=== PATIENT | female | born 1990 | race Caucasian/White ===

== ENCOUNTER 2017-12-18 09:50 | Observation (INO) | payer BC, MEDICAID ==
[~2017-12-18] VITALS: Ht 30.5 cm; Wt 0.5 kg
[~2017-12-18 09:50] MED LIST: PREN-96 PO
[2017-12-18 11:28] LABS: Basophils # (auto) 0 uL; Basophils % (auto) 0.1 % (0.0-2.0); Eosinophils # (auto) 0 uL; Eosinophils % (auto) 0.5 % (0.0-7.0); Hematocrit 30.6 % (36.0-46.0); Hemoglobin 10.4 g/dL (12.2-16.2); Lymphocytes # (auto) 1.6 uL; Mean Corpuscular Hemoglobin 28.2 pg (28.0-32.0); Mean Corpuscular Hgb Conc. 33.8 g/dL (32.0-36.0); Mean Corpuscular Volume 83.3 fL (80.0-100.0); Monocytes # (auto) 0.6 uL; Monocytes % (auto) 6.3 % (0.0-12.0); Neutrophils # (auto) 7.2 uL; Neutrophils % (auto) 76.1 % (37.0-80.0); Nucleated Red Blood Cells % 0.1 %; Platelet Count (auto) 172 10^3/uL (140-450); Red Blood Cells 3.68 10^6/uL (4.0-5.20); White Blood Cell 9.4 10^3/uL (4.4-10.8)
[2017-12-18 11:45] LABS: INR 0.92 (0.9-1.15); Partial Thromboplastin Time 26.5 sec (22.64-33.71)
[2017-12-18 11:47] LABS: Urine Bacteria MOD /hpf (None Seen); Urine Blood Negative /uL (Negative); Urine Specific Gravity 1.015 (1.001-1.035); Urine WBC 12 /hpf (0 - 5)
[2017-12-18 11:47] LABS: Albumin 2.7 g/dL (3.4-5.0); BUN/Creatinine Ratio 7.5; Bilirubin, Total 0.3 mg/dL (0.2-1.0); Calcium 8.2 mg/dL (8.5-10.1); Total Protein 6.2 g/dL (6.4-8.2); Uric Acid 5.3 mg/dL (2.6-6.0)
[2017-12-18 12:03] LABS: Potassium 2.6 mmol/L (3.5-5.1)
[2017-12-18] MEDS ORDERED: POTASSIUM CHL 20 Meq TABLET PO ONE (12:45)
[2017-12-18] MEDS: POTASSIUM CHL 20MEQ/100ML 100 ML IV SCH ×2 (13:35→15:16)
[2017-12-18] MEDS ORDERED: LABETALOL HCL 200 MG TAB PO STA ×3 (15:34→17:10)
[2017-12-18] MEDS ORDERED: LABETALOL HCL 200 MG TAB ONE (15:40)
[2017-12-18] MEDS ORDERED: LABE200T18 PO (19:15)
[2017-12-19 05:07] LABS: RPR Non Reactive (Non Reactive)
== END 2017-12-18 19:52 | disposition home or self-care (01) | DRG 781 ==
LOC: LDRP 09:50
PROVIDERS: ADMIT Specialist; ATTEND Specialist
DX: O13.3 Gestational [pregnancy-induced] hypertension without significant proteinuria, third trimester (principal); O99.283 Endocrine, nutritional and metabolic diseases complicating pregnancy, third trimester; E87.6 Hypokalemia; Z3A.36 36 weeks gestation of pregnancy
CPT/HCPCS: 36415; 59025; 76818; 80053; 81001; 81002; 84550; 85025; 85610; 85730; 86592; 96365; 96366; G0378; J3480

== ENCOUNTER 2017-12-20 09:15 | Observation (INO) | payer BC, MEDICAID ==
[~2017-12-20 09:15] MED LIST changes: +LABE200T18 PO
[2017-12-20 09:58] LABS: Protein, Urine 20.8 mg/dL (0.0-11.9)
[2017-12-20 09:59] LABS: 24 Hr. Total Protein, Urine 343.2 mg/24 Hr (<149.1)
[2017-12-20] MEDS ORDERED: POTASSIUM CHL 20 Meq TABLET PO ONE ×2 (10:50)
== END 2017-12-20 11:15 | disposition home or self-care (01) | DRG 566 ==
LOC: LDRP 09:15
PROVIDERS: ADMIT Obstetrics & Gynecology; ATTEND Obstetrics & Gynecology
DX: O13.3 Gestational [pregnancy-induced] hypertension without significant proteinuria, third trimester (principal); Z87.442 Personal history of urinary calculi; Z3A.36 36 weeks gestation of pregnancy
CPT/HCPCS: 36415; 59025; 81002; 84132; 84156; G0378

== ENCOUNTER 2017-12-22 10:43 | Observation (INO) | payer MEDICAID ==
[2017-12-22] MEDS ORDERED: FERR-7 PO (11:04)
[2017-12-22 11:37] LABS: Urine Bacteria MANY /hpf (None Seen); Urine Blood Negative /uL (Negative); Urine Mucus FEW (None Seen); Urine Specific Gravity 1.015 (1.001-1.035); Urine WBC 20 /hpf (0 - 5)
[2017-12-22 12:02] LABS: Basophils # (auto) 0 uL; Basophils % (auto) 0.2 % (0.0-2.0); Eosinophils # (auto) 0.1 uL; Eosinophils % (auto) 0.5 % (0.0-7.0); Hematocrit 28.9 % (36.0-46.0); Hemoglobin 9.7 g/dL (12.2-16.2); Lymphocytes # (auto) 1.6 uL; Lymphocytes % (auto) 17.4 % (10.0-50.0); Mean Corpuscular Hemoglobin 28.3 pg (28.0-32.0); Mean Corpuscular Hgb Conc. 33.7 g/dL (32.0-36.0); Monocytes # (auto) 0.6 uL; Monocytes % (auto) 6.3 % (0.0-12.0); Neutrophils % (auto) 75.6 % (37.0-80.0); Platelet Count (auto) 167 10^3/uL (140-450); Red Blood Cells 3.43 10^6/uL (4.0-5.20); Red Cell Distribution Width 16.1 % (11.8-14.3); White Blood Cell 9.2 10^3/uL (4.4-10.8)
[2017-12-22 12:09] LABS: INR 0.93 (0.9-1.15); Partial Thromboplastin Time 24.3 sec (22.64-33.71); Prothrombin Time 10.1 sec (9.37-12.3)
[2017-12-22 12:23] LABS: Albumin 2.6 g/dL (3.4-5.0); BUN/Creatinine Ratio 8.8; Bilirubin, Total 0.3 mg/dL (0.2-1.0); Potassium 3.2 mmol/L (3.5-5.1); Total Protein 6.1 g/dL (6.4-8.2); Uric Acid 5.4 mg/dL (2.6-6.0)
[2017-12-22] MEDS ORDERED: POTASSIUM CHL 20 Meq TABLET PO ONE (13:00)
== END 2017-12-22 13:20 | disposition home or self-care (01) | DRG 566 ==
LOC: LDRP 10:43
PROVIDERS: ADMIT Obstetrics & Gynecology; ATTEND Obstetrics & Gynecology
DX: O13.3 Gestational [pregnancy-induced] hypertension without significant proteinuria, third trimester (principal); Z87.442 Personal history of urinary calculi; Z3A.36 36 weeks gestation of pregnancy
CPT/HCPCS: 36415; 59025; 76818; 80053; 81001; 81002; 84550; 85025; 85610; 85730; G0378

== ENCOUNTER 2017-12-23 08:10 | Observation (INO) | payer MEDICAID ==
[~2017-12-23 08:10] MED LIST changes: +FERR-7 PO
== END 2017-12-23 10:45 | disposition home or self-care (01) | DRG 566 ==
LOC: LDRP 08:10
PROVIDERS: ADMIT Obstetrics & Gynecology; ATTEND Obstetrics & Gynecology
DX: O13.3 Gestational [pregnancy-induced] hypertension without significant proteinuria, third trimester (principal); Z3A.36 36 weeks gestation of pregnancy
CPT/HCPCS: 59025; 76818; 81002; G0378

== ENCOUNTER 2017-12-25 10:55 | Observation (INO) | payer MEDICAID ==
[~2017-12-25] VITALS: Ht 167.6 cm; Wt 90.7 kg
== END 2017-12-25 11:35 | disposition home or self-care (01) | DRG 566 ==
LOC: LDRP 10:55
PROVIDERS: ADMIT Specialist; ATTEND Specialist
DX: O13.3 Gestational [pregnancy-induced] hypertension without significant proteinuria, third trimester (principal); Z3A.37 37 weeks gestation of pregnancy
CPT/HCPCS: 59025; 81002; G0378

== ENCOUNTER 2017-12-27 15:15 | Inpatient (IN) | payer MEDICAID ==
[~2017-12-27] VITALS: Ht 1 cm; Wt 0.5 kg
[2017-12-27] MEDS ORDERED: hydrALAZINE HCL 20 MG/ML VL ONE (16:30)
[2017-12-27] MEDS ORDERED: hydrALAZINE HCL 20 MG/ML VL IV ONE (16:30)
[2017-12-27 17:36] LABS: Basophils # (auto) 0 uL; Basophils % (auto) 0.1 % (0.0-2.0); Eosinophils # (auto) 0.1 uL; Eosinophils % (auto) 0.5 % (0.0-7.0); Hemoglobin 10.4 g/dL (12.2-16.2); Lymphocytes # (auto) 1.4 uL; Lymphocytes % (auto) 14.7 % (10.0-50.0); Mean Corpuscular Hemoglobin 28.1 pg (28.0-32.0); Mean Corpuscular Hgb Conc. 33.5 g/dL (32.0-36.0); Monocytes # (auto) 0.6 uL; Monocytes % (auto) 5.9 % (0.0-12.0); Neutrophils # (auto) 7.8 uL; Neutrophils % (auto) 78.8 % (37.0-80.0); Nucleated Red Blood Cells % 0.1 %; Platelet Count (auto) 199 10^3/uL (140-450); Red Blood Cells 3.68 10^6/uL (4.0-5.20); White Blood Cell 9.9 10^3/uL (4.4-10.8)
[2017-12-27] MEDS ORDERED: LACT. RINGERS/OXYTOCIN 20UNITS 1,000 ML IV SCH (17:37)
[2017-12-27] MEDS: LACTATED RINGER'S 1,000 ML IV SCH (17:37)
[2017-12-27] MEDS ORDERED: MAGNESIUM SULFATE 40MG/ML 1,000 ML IV SCH (17:37)
[2017-12-27] MEDS: hydrALAZINE HCL 20 MG/ML VL IV PRN ×2 (17:39→21:48)
[2017-12-27 17:44] LABS: INR 0.89 (0.9-1.15); Partial Thromboplastin Time 25.2 sec (22.64-33.71); Prothrombin Time 9.7 sec (9.37-12.3)
[2017-12-27] MEDS ORDERED: MAGNESIUM SULFATE 100 ML IV ONE ×2 (17:44→17:45)
[2017-12-27] MEDS ORDERED: PENICILLIN G POT 5MIL/D5 50ML 50 ML IV ONE ×2 (17:44→18:00)
[2017-12-27] MEDS ORDERED: MAGNESIUM SULFATE 40MG/ML 1,000 ML IV ONE (17:44)
[2017-12-27] MEDS ORDERED: LIDOCAINE 2% (LOCAL ANESTH.) PF 5ml SDV ID ONE (17:45)
[2017-12-27] MEDS ORDERED: DERMOPLAST 60ML BOTTLE TOP PRN (17:45)
[2017-12-27] MEDS ORDERED: WITCH HAZEL-GLYCERIN PAD TOP PRN (17:45)
[2017-12-27] MEDS ORDERED: NALBUPHINE HCL 10 MG/1ml INJECTION IV PRN (17:45)
[2017-12-27] MEDS ORDERED: METHYLERGONOVINE MALEATE 0.2 MG/ML AMP IM PRN (17:45)
[2017-12-27] MEDS ORDERED: PHISODERM TOP SOLN 240ML BTL TOP PRN (17:45)
[2017-12-27 17:46] LABS: Albumin 2.8 g/dL (3.4-5.0); BUN/Creatinine Ratio 10.8; Bilirubin, Total 0.4 mg/dL (0.2-1.0); Calcium 9.8 mg/dL (8.5-10.1); Potassium 3.3 mmol/L (3.5-5.1); Total Protein 6.7 g/dL (6.4-8.2); Uric Acid 5.4 mg/dL (2.6-6.0)
[2017-12-27 17:52] LABS: Urine Bacteria FEW /hpf (None Seen); Urine Blood 1+ /uL (Negative); Urine Mucus FEW (None Seen); Urine WBC 9 /hpf (0 - 5)
[2017-12-27] MEDS ORDERED: ACETAMINOPHEN 325 MG TAB PO ONE ×2 (21:25→21:30)
[2017-12-27] MEDS ORDERED: LABETALOL HCL 200 MG TAB ONE (22:00)
[2017-12-27] MEDS: PENICILLIN G POTASSIUM 2,500,000 UNITS in D5W 5% 50 ML IV SCH (22:07)
[2017-12-27] MEDS: LABETALOL HCL 200 MG TAB PO SCH (22:08)
[2017-12-27] MEDS ORDERED: fentaNYL W ROPIVACAINE 150 ML EPI ONE (22:21)
[2017-12-27] MEDS ORDERED: fentaNYL CITRATE 100 MCG/2 ML VL ONE (22:21)
[2017-12-27] MEDS ORDERED: ePHEDrine SULFATE 50 MG/ML AMP ONE (22:22)
[2017-12-27] MEDS ORDERED: LIDOCAINE HCL 2 %PF INJ 10ML AMP IJ ONE ×2 (22:22→22:30)
[2017-12-27] MEDS ORDERED: LIDOCAINE 2% (LOCAL ANESTH.) PF 5ml SDV ONE (22:22)
[2017-12-27] MEDS ORDERED: fentaNYL CITRATE 100 MCG/2 ML VL IV ONE (22:30)
[2017-12-27] MEDS ORDERED: LIDOCAINE 2% (LOCAL ANESTH.) PF 5ml SDV IJ ONE (22:30)
[2017-12-27] MEDS ORDERED: NALOXONE HCL 0.4 MG/ML VIAL IV ONE ×2 (22:30→23:45)
[2017-12-27] MEDS ORDERED: ePHEDrine SULFATE 50 MG/ML AMP IV ONE ×2 (22:30→23:45)
[2017-12-27] MEDS ORDERED: fentaNYL W ROPIVACAINE 150 ML EPI SCH (22:30)
[2017-12-27] MEDS ORDERED: SODIUM CHLORIDE 0.9% 500 ML IV PRN (23:37)
[2017-12-28] MEDS: fentaNYL W ROPIVACAINE 150 ML EPI SCH ×2 (00:38→12:34)
[2017-12-28] MEDS: PENICILLIN G POTASSIUM 2,500,000 UNITS in D5W 5% 50 ML IV SCH ×2 (02:18→06:00)
[2017-12-28] MEDS ORDERED: ONDANSETRON HCL 4 MG/2 ML VIAL IV PRN (09:00)
[2017-12-28] MEDS ORDERED: DIPHENOXYLATE W/ATROPINE 2.5 MG TAB PO PRN (09:00)
[2017-12-28] MEDS ORDERED: CARBOPROST TROMETHAMINE 250 MCG/1ML VIAL IM ONE ×3 (09:00→09:55)
[2017-12-28] MEDS ORDERED: NALBUPHINE HCL 10 MG/1ml INJECTION IV PRN (09:15)
[2017-12-28] MEDS ORDERED: HYDROcodone-ACET 5/325MG TAB PO PRN (09:15)
[2017-12-28] MEDS: LACTATED RINGER'S 1,000 ML IV SCH ×3 (09:30→17:37)
[2017-12-28] MEDS ORDERED: DIPHENOXYLATE W/ATROPINE 2.5 MG TAB ONE (09:37)
[2017-12-28] MEDS ORDERED: ONDANSETRON HCL 4 MG/2 ML VIAL ONE (09:37)
[2017-12-28] MEDS: CARBOPROST TROMETHAMINE 250 MCG/1ML VIAL IM SCH ×2 (10:00→10:15)
[2017-12-28 10:28] LABS: Basophils # (auto) 0 uL; Basophils % (auto) 0.2 % (0.0-2.0); Eosinophils # (auto) 0 uL; Hematocrit 26.1 % (36.0-46.0); Hemoglobin 8.9 g/dL (12.2-16.2); Lymphocytes # (auto) 1.6 uL; Lymphocytes % (auto) 6.3 % (10.0-50.0); Mean Corpuscular Hemoglobin 28.3 pg (28.0-32.0); Mean Corpuscular Hgb Conc. 34.1 g/dL (32.0-36.0); Monocytes # (auto) 1.5 uL; Monocytes % (auto) 5.8 % (0.0-12.0); Neutrophils # (auto) 22.2 uL; Neutrophils % (auto) 87.7 % (37.0-80.0); Platelet Count (auto) 230 10^3/uL (140-450); Red Blood Cells 3.15 10^6/uL (4.0-5.20); Red Cell Distribution Width 16.2 % (11.8-14.3); White Blood Cell 25.3 10^3/uL (4.4-10.8)
[2017-12-28] MEDS: LABETALOL HCL 200 MG TAB PO SCH ×2 (11:00→22:00)
[2017-12-28 11:30] VITALS: BP 117/77
[2017-12-28] MEDS: ceFAZolin 1GM/100ML 50 ML IV SCH ×2 (12:00→20:20)
[2017-12-28] MEDS ORDERED: IBUPROFEN 600 MG TAB PO PRN (14:30)
[2017-12-28] MEDS ORDERED: ACETAMINOPHEN 325 MG TAB PO PRN (14:30)
[2017-12-28 15:30] VITALS: BP 98/55
[2017-12-28 19:00] VITALS: BP 117/78
[2017-12-28] MEDS: IBUPROFEN 600 MG TAB PO PRN (20:28)
[2017-12-28 20:42] LABS: Basophils # (auto) 0 uL; Eosinophils # (auto) 0 uL; Monocytes # (auto) 1.2 uL
[2017-12-28 20:43] LABS: Basophils % (auto) 0.1 % (0.0-2.0); Hematocrit 22.8 % (36.0-46.0); Hemoglobin 7.7 g/dL (12.2-16.2); Lymphocytes % (auto) 8.8 % (10.0-50.0); Mean Corpuscular Hemoglobin 28.4 pg (28.0-32.0); Mean Corpuscular Hgb Conc. 33.8 g/dL (32.0-36.0); Monocytes % (auto) 5.5 % (0.0-12.0); Neutrophils # (auto) 19.2 uL; Neutrophils % (auto) 85.6 % (37.0-80.0); Nucleated Red Blood Cells % 0.1 %; Platelet Count (auto) 213 10^3/uL (140-450); Red Blood Cells 2.71 10^6/uL (4.0-5.20); Red Cell Distribution Width 16.6 % (11.8-14.3); White Blood Cell 22.4 10^3/uL (4.4-10.8)
[2017-12-28] MEDS: FERROUS SULFATE 325 MG TAB PO SCH (22:00)
[2017-12-28 23:06] VITALS: BP 103/55
[2017-12-29 03:02] VITALS: BP 95/53
[2017-12-29] MEDS: LACTATED RINGER'S 1,000 ML IV SCH (04:00)
[2017-12-29] MEDS: ceFAZolin 1GM/100ML 50 ML IV SCH (04:00)
[2017-12-29] MEDS: FERROUS SULFATE 325 MG TAB PO SCH (06:26)
[2017-12-29 06:30] VITALS: BP 110/61
[2017-12-29] MEDS: IBUPROFEN 600 MG TAB PO PRN (08:02)
[2017-12-29] MEDS ORDERED: TETANUS-DIPTH-ACEL PERTUSSIS 0.5ML SYRG IM ONE (08:15)
[2017-12-29] MEDS: LABETALOL HCL 200 MG TAB PO SCH (09:49)
[2017-12-29 10:35] VITALS: BP 116/69
== END 2017-12-29 10:35 | disposition home or self-care (01) | DRG 560 ==
LOC: OBSVTOIN 15:15 → LDRP 15:15
PROVIDERS: ADMIT Obstetrics & Gynecology; ATTEND Obstetrics & Gynecology
PROC: 3E033VJ Introduction of Other Hormone into Peripheral Vein, Percutaneous Approach (ICD-10-PCS; principal; 2017-12-28)
PROC: 10E0XZZ Delivery of Products of Conception, External Approach (ICD-10-PCS; 2017-12-28)
PROC: 00HU33Z Insertion of Infusion Device into Spinal Canal, Percutaneous Approach (ICD-10-PCS; 2017-12-28)
PROC: 3E0R3BZ Introduction of Anesthetic Agent into Spinal Canal, Percutaneous Approach (ICD-10-PCS; 2017-12-28)
PROC: 10907ZC Drainage of Amniotic Fluid, Therapeutic from Products of Conception, Via Natural or Artificial Opening (ICD-10-PCS; 2017-12-28)
PROC: 0HQ9XZZ Repair Perineum Skin, External Approach (ICD-10-PCS; 2017-12-28)
DX: O13.4 Gestational [pregnancy-induced] hypertension without significant proteinuria, complicating childbirth (principal); O72.1 Other immediate postpartum hemorrhage; O99.02 Anemia complicating childbirth; D64.9 Anemia, unspecified; O70.0 First degree perineal laceration during delivery; Z37.0 Single live birth; Z3A.37 37 weeks gestation of pregnancy; O21.0 Mild hyperemesis gravidarum; O99.824 Streptococcus B carrier state complicating childbirth; O14.94 Unspecified pre-eclampsia, complicating childbirth; Z23 Encounter for immunization
CPT/HCPCS: 36415; 51702; 59025; 59409; 62282; 76818; 80053; 81001; 81002; 83735; 84550; 85025; 85610; 85730; 86850; 86900; 86901; 90472; 90715; 94762; 96361; 96365; 96366; 96372; 96374; 96375; J0690; J2405; J2540; J2590; J3010; J7060

== ENCOUNTER 2020-01-01 11:16 | Inpatient (IN) | payer MEDICAID ==
[~2020-01-01] VITALS: Ht 167.6 cm; Wt 97.7 kg
[2020-01-01] MEDS ORDERED: SODIUM CHLORIDE 0.9% 1,000 ML IVB ONE (11:26)
[2020-01-01] MEDS ORDERED: MORPHINE SULFATE 4 MG/ML SYR/VIAL IV ONE (11:30)
[2020-01-01] MEDS ORDERED: ONDANSETRON HCL 4 MG/2 ML VIAL IV ONE ×2 (11:30→12:15)
[2020-01-01 11:46] LABS: Urine Bacteria FEW /hpf (None Seen); Urine Blood 1+ /uL (Negative); Urine Mucus FEW (None Seen); Urine WBC 4 /hpf (0 - 5)
[2020-01-01 11:53] LABS: Basophils # (auto) 0 10 ^3/uL (0-0.2)
[2020-01-01 11:54] LABS: Basophils % (auto) 0.2 % (0.0-2.0); Eosinophils # (auto) 0.1 10 ^3/uL (0-0.8); Eosinophils % (auto) 0.9 % (0.0-7.0); Hematocrit 44.4 % (36.0-46.0); Hemoglobin 14.7 g/dL (12.2-16.2); Lymphocytes # (auto) 1.6 10 ^3/uL (0.4-5.4); Lymphocytes % (auto) 17.3 % (10.0-50.0); Mean Corpuscular Hemoglobin 26.7 pg (28.0-32.0); Mean Corpuscular Hgb Conc. 33.1 g/dL (32.0-36.0); Mean Corpuscular Volume 80.9 fL (80.0-100.0); Monocytes # (auto) 0.5 10 ^3/uL (0-1.3); Monocytes % (auto) 5.3 % (0.0-12.0); Neutrophils # (auto) 6.9 10 ^3/uL (1.6-8.6); Neutrophils % (auto) 76.3 % (37.0-80.0); Nucleated Red Blood Cells % 0.3 %; Platelet Count (auto) 241 10^3/uL (140-450); Red Blood Cells 5.49 10^6/uL (4.0-5.20); Red Cell Distribution Width 14.6 % (11.8-14.3); White Blood Cell 9.1 10^3/uL (4.4-10.8)
[2020-01-01 12:12] LABS: Albumin 3.8 g/dL (3.4-5.0); Calcium 8.7 mg/dL (8.5-10.1); Potassium 3.8 mmol/L (3.5-5.1)
[2020-01-01 12:15] LABS: BUN/Creatinine Ratio 11.5; Bilirubin, Total 0.5 mg/dL (0.2-1.0)
[2020-01-01] MEDS ORDERED: HYDROmorphone HCL 2 MG/ML VL IV ONE (12:15)
[2020-01-01] MEDS ORDERED: KETOROLAC TROMETH 30 MG/ML 1ML VIAL IV ONE (12:15)
[2020-01-01] MEDS ORDERED: LACTATED RINGER'S 2,700 ML IV ONE (14:00)
[2020-01-01] MEDS ORDERED: CIPROFLOXACIN 400MG/200ML 200 ML IV ONE (14:00)
[2020-01-01] MEDS ORDERED: LORazepam 0.5 MG TAB PO PRN (14:15)
[2020-01-01] MEDS ORDERED: TAMSULOSIN HYDROCHLORIDE 0.4 MG CAP PO ONE (14:15)
[2020-01-01] MEDS ORDERED: NITROGLYCERIN 0.4 MG SL TAB SL PRN (14:15)
[2020-01-01] MEDS ORDERED: MORPHINE SULF INJ 2 MG/ML SYRINGE 1ML IV PRN ×2 (14:15)
[2020-01-01] MEDS ORDERED: ONDANSETRON HCL 4 MG/2 ML VIAL IV PRN (14:15)
[2020-01-01] MEDS ORDERED: HYDROcodone-ACET 5/325MG TAB PO PRN (14:15)
[2020-01-01] MEDS ORDERED: ALUM & MAG HYDROX-SIMETH LIQ(MAALOX) 30 ML PO PRN (14:15)
[2020-01-01] MEDS ORDERED: DOCUSATE SOD 100 MG CAP PO PRN (14:15)
[2020-01-01] MEDS ORDERED: LACTATED RINGER'S 1,000 ML IV ONE (14:30)
[2020-01-01 14:32] LABS: Cholesterol 143 mg/dL (< 200)
[2020-01-01 14:35] LABS: HDL Cholesterol 37 mg/dL (40-59); LDL Cholesterol 92 mg/dL (< 100); Triglycerides 65 mg/dL (< 150)
[2020-01-01 14:39] LABS: Alcohol, Urine < 3.0 mg/dL (0-5); Amphetamine Screen, Urine NEGATIVE (NEGATIVE); Barbiturate Scree,Urine NEGATIVE (NEGATIVE); Benzodiazephine Screen, Urine NEGATIVE (NEGATIVE); Cannabinoid Screen, Urine NEGATIVE (NEGATIVE); Cocaine Screen, Urine NEGATIVE (NEGATIVE)
[2020-01-01 15:02] LABS: Opiate Scree,Urine NEGATIVE (NEGATIVE); Phencyclidine Screen, Urine NEGATIVE (NEGATIVE)
[2020-01-01] MEDS: SODIUM CHLORIDE 0.9% 1,000 ML IV SCH ×2 (15:58→21:47)
[2020-01-01 17:00] VITALS: BP 121/81
[2020-01-01 20:00] VITALS: BP 97/48
[2020-01-01] MEDS: LABETALOL HCL 200 MG TAB PO SCH (21:46)
[2020-01-01] MEDS: CIPROFLOXACIN 400MG/200ML 200 ML IV SCH (21:47)
[2020-01-01 22:00] VITALS: BP 97/48
[2020-01-02 05:00] VITALS: BP 106/61
[2020-01-02] MEDS: SODIUM CHLORIDE 0.9% 1,000 ML IV SCH ×2 (05:20→11:06)
[2020-01-02 07:07] LABS: Basophils # (auto) 0 10 ^3/uL (0-0.2); Basophils % (auto) 0.2 % (0.0-2.0); Eosinophils # (auto) 0.1 10 ^3/uL (0-0.8); Hematocrit 36.9 % (36.0-46.0); Hemoglobin 12.5 g/dL (12.2-16.2); Lymphocytes # (auto) 2.1 10 ^3/uL (0.4-5.4); Lymphocytes % (auto) 22.7 % (10.0-50.0); Mean Corpuscular Hemoglobin 27.5 pg (28.0-32.0); Mean Corpuscular Hgb Conc. 33.7 g/dL (32.0-36.0); Mean Corpuscular Volume 81.5 fL (80.0-100.0); Monocytes # (auto) 0.5 10 ^3/uL (0-1.3); Monocytes % (auto) 5.3 % (0.0-12.0); Neutrophils # (auto) 6.6 10 ^3/uL (1.6-8.6); Neutrophils % (auto) 70.8 % (37.0-80.0); Nucleated Red Blood Cells % 0.2 %; Platelet Count (auto) 202 10^3/uL (140-450); Red Blood Cells 4.53 10^6/uL (4.0-5.20); Red Cell Distribution Width 14.6 % (11.8-14.3); White Blood Cell 9.3 10^3/uL (4.4-10.8)
[2020-01-02 07:16] LABS: INR 1.01 (0.9-1.15); Partial Thromboplastin Time 27.9 sec (23.64-32.05)
[2020-01-02 07:27] LABS: Albumin 3.1 g/dL (3.4-5.0); Magnesium 1.9 mg/dL (1.6-2.6); Potassium 3.8 mmol/L (3.5-5.1)
[2020-01-02 07:29] LABS: Bilirubin, Total 0.3 mg/dL (0.2-1.0); Phosphorus 2.9 mg/dL (2.5-4.90); Total Protein 6.4 g/dL (6.4-8.2)
[2020-01-02 09:00] VITALS: BP 124/71
[2020-01-02] MEDS ORDERED: ENOXAPARIN SOD 40 MG/0.4 ML SYRINGE SC SCH (10:00)
[2020-01-02] MEDS: LABETALOL HCL 200 MG TAB PO SCH (10:00)
[2020-01-02] MEDS: CIPROFLOXACIN 400MG/200ML 200 ML IV SCH (11:13)
[2020-01-02 13:00] VITALS: BP 113/75
[2020-01-02] MEDS ORDERED: CIPR-187 PO (15:28)
[2020-01-02] MEDS ORDERED: TAM04C PO (15:28)
[2020-01-02 16:19] VITALS: BP 97/48
[2020-01-02] MEDS ORDERED: TAMSULOSIN HYDROCHLORIDE 0.4 MG CAP PO SCH (18:00)
== END 2020-01-02 16:30 | disposition home or self-care (01) | DRG 463 ==
LOC: ER 11:16 → TELE 11:17 → TELE-WESTW 15:49
PROVIDERS: ADMIT Hospitalist; ATTEND Internal Medicine
DX: N13.6 Pyonephrosis (principal); E66.9 Obesity, unspecified; T83.32XA Displacement of intrauterine contraceptive device, initial encounter; Y76.2 Prosthetic and other implants, materials and accessory obstetric and gynecological devices associated with adverse incidents; I10 Essential (primary) hypertension; Q63.1 Lobulated, fused and horseshoe kidney; Z79.899 Other long term (current) drug therapy; Y92.89 Other specified places as the place of occurrence of the external cause; Z68.32 Body mass index [BMI] 32.0-32.9, adult; Z11.59 Encounter for screening for other viral diseases
CPT/HCPCS: 36415; 74176; 80053; 80061; 80307; 81001; 81025; 83036; 83690; 83735; 84100; 85025; 85610; 85730; 87086; 96361; 96365; 96375; G0378; J1885; J2405

== ENCOUNTER → 2020-01-15 | Day surgery (SDC) | payer MEDICAID ==
[2020-01-13 14:53] LABS: Basophils # (auto) 0 10 ^3/uL (0-0.2); Basophils % (auto) 0.4 % (0.0-2.0); Eosinophils # (auto) 0.1 10 ^3/uL (0-0.8); Eosinophils % (auto) 1.7 % (0.0-7.0); Hematocrit 39.8 % (36.0-46.0); Hemoglobin 13.2 g/dL (12.2-16.2); Lymphocytes # (auto) 1.8 10 ^3/uL (0.4-5.4); Lymphocytes % (auto) 21.5 % (10.0-50.0); Mean Corpuscular Hemoglobin 27.2 pg (28.0-32.0); Mean Corpuscular Hgb Conc. 33.2 g/dL (32.0-36.0); Monocytes # (auto) 0.5 10 ^3/uL (0-1.3); Monocytes % (auto) 5.6 % (0.0-12.0); Neutrophils # (auto) 5.8 10 ^3/uL (1.6-8.6); Neutrophils % (auto) 70.8 % (37.0-80.0); Platelet Count (auto) 240 10^3/uL (140-450); Red Blood Cells 4.85 10^6/uL (4.0-5.20); Red Cell Distribution Width 14.5 % (11.8-14.3); White Blood Cell 8.2 10^3/uL (4.4-10.8)
[2020-01-13 15:10] LABS: INR 0.99 (0.9-1.15); Partial Thromboplastin Time 27.3 sec (23.64-32.05)
[2020-01-13 15:12] LABS: Albumin 3.7 g/dL (3.4-5.0); Calcium 8.1 mg/dL (8.5-10.1); Potassium 3.3 mmol/L (3.5-5.1)
[2020-01-13 15:16] LABS: Urine Bacteria FEW /hpf (None Seen); Urine Blood 1+ /uL (Negative); Urine Mucus FEW (None Seen); Urine Specific Gravity 1.017 (1.001-1.035); Urine WBC 12 /hpf (0 - 5)
[2020-01-13 15:17] LABS: BUN/Creatinine Ratio 8.1; Bilirubin, Total 0.3 mg/dL (0.2-1.0); Total Protein 7.2 g/dL (6.4-8.2)
[~2020-01-15] VITALS: Ht 167.6 cm; Wt 90.7 kg
[~2020-01-15] MED LIST changes: -FERR-7 PO; +HYDROmorphone HCL 2 MG/ML VL IV PRN; -LABE200T18 PO; +LIDOCAINE 1% HCL (LOCAL ANESTH.) INJ 20ML MDV ONE; +MEPERIDINE HCL (25 MG/ML) 1ML VIAL IV ONE; +MEPERIDINE HCL (25 MG/ML) 1ML VIAL ONE; +MIDAZOLAM HCL 1MG/1ML-2 ML VIAL ONE; +MORPHINE SULF INJ 2 MG/ML SYRINGE 1ML IV PRN; +ONDANSETRON HCL 4 MG/2 ML VIAL IV PRN; +ONDANSETRON HCL 4 MG/2 ML VIAL ONE; -PREN-96 PO; +PROPOFOL 10 MG/ML 20 ML IV ONE; +SODIUM CHLORIDE LOCK 10 ML ONE; +ceFAZolin 1GM/50ML 50 ML IV ONE; +fentaNYL CITRATE 100 MCG/2 ML VL ONE
[2020-01-15 16:21] VITALS: BP 136/86
== END | disposition home or self-care (01) ==
LOC: SUR 09:37
PROVIDERS: ATTEND Urology
DX: N20.0 Calculus of kidney (principal); E66.9 Obesity, unspecified; Z68.31 Body mass index [BMI] 31.0-31.9, adult; Z98.890 Other specified postprocedural states; Z11.59 Encounter for screening for other viral diseases
CPT/HCPCS: 36415; 50590; 52332; 80053; 81001; 84702; 85025; 85610; 85730; C1769; C2617; J0690; J2001; J2175; J2250; J2405; J2704; J3010; U0003

== ENCOUNTER 2024-05-27 20:27 | Inpatient (IN) | payer OTHER ==
[~2024-05-27] VITALS: Ht 167.6 cm; Wt 72.6 kg
[2024-05-27] MEDS ORDERED: LIDOCAINE 2%HCL (LOCAL ANESTH.) INJ 20ML MDV IJ PRN (20:45)
[2024-05-27] MEDS ORDERED: DERMOPLAST 60ML BOTTLE TOP PRN (20:45)
[2024-05-27] MEDS ORDERED: WITCH HAZEL-GLYCERIN PAD TOP PRN (20:45)
[2024-05-27] MEDS ORDERED: BUTORPHANOL TARTRATE 2 MG/1 ML VIAL IV PRN ×2 (20:45)
[2024-05-27] MEDS ORDERED: PHISODERM TOP SOLN 240ML BTL TOP PRN (20:45)
[2024-05-27 22:08] LABS: Basophils # (auto) 0 10 ^3/uL (0-0.2); Basophils % (auto) 0.1 % (0.0-2.0); Eosinophils # (auto) 0.1 10 ^3/uL (0-0.8); Eosinophils % (auto) 0.6 % (0.0-7.0); Hematocrit 29.8 % (36.0-46.0); Hemoglobin 10.3 g/dL (12.2-16.2); Lymphocytes % (auto) 17.2 % (10.0-50.0); Mean Corpuscular Hemoglobin 29.6 pg (28.0-32.0); Mean Corpuscular Hgb Conc. 34.5 g/dL (32.0-36.0); Monocytes # (auto) 0.8 10 ^3/uL (0-1.3); Monocytes % (auto) 6.6 % (0.0-12.0); Neutrophils # (auto) 8.7 10 ^3/uL (1.6-8.6); Neutrophils % (auto) 75.5 % (37.0-80.0); Nucleated Red Blood Cells % 0.1 %; Platelet Count (auto) 187 10^3/uL (140-450); Red Blood Cells 3.47 10^6/uL (4.0-5.20); Red Cell Distribution Width 13.7 % (11.8-14.3); White Blood Cell 11.5 10^3/uL (4.4-10.8)
[2024-05-27] MEDS: LACTATED RINGER'S 1,000 ML IV SCH (22:19)
[2024-05-27 22:23] LABS: Alanine Aminotransferase 13 U/L (7-40); Albumin 3.7 g/dL (3.2-4.8); Alkaline Phosphatase 110 U/L (46-116); Anion Gap 8 (5-15); Aspartate Aminotransferase 16 U/L (13-40); BUN/Creatinine Ratio 9.7 (10.0-20.0); Bilirubin, Total 0.4 mg/dL (0.2-1.0); Blood Urea Nitrogen 6 mg/dL (9-23); Calcium 9.6 mg/dL (8.7-10.4); Carbon Dioxide 25 mmol/L (20-31); Chloride 107 mmol/L (98-107); Glucose 99 mg/dL (74-106); Potassium 2.9 mmol/L (3.5-5.1); Sodium 140 mmol/L (136-145); Total Protein 5.9 g/dL (5.7-8.2)
[2024-05-27 22:28] LABS: INR 0.95 (0.9-1.15); Prothrombin Time 10.1 sec (9.3-11.8)
[2024-05-27 22:46] LABS: Urine Bacteria FEW /hpf (None Seen); Urine Blood 1+ /uL (Negative); Urine Clarity Clear (Clear); Urine Color Colorless (Yellow); Urine Protein, UAD Negative (Negative); Urine Specific Gravity 1.004 (1.001-1.035); Urine Urobilinogen Normal (Negative); Urine WBC 2 /hpf (0 - 5); Urine pH 6.5 (5.0-9.0)
[2024-05-27 22:51] LABS: Amphetamine Screen, Urine Neg (NEGATIVE); Barbiturate Scree,Urine Neg (NEGATIVE); Benzodiazephine Screen, Urine Neg (NEGATIVE); Cocaine Screen, Urine Neg (NEGATIVE); Opiate Scree,Urine Neg (NEGATIVE); Phencyclidine Screen, Urine Neg (NEGATIVE)
[2024-05-27 22:52] LABS: Cannabinoid Screen, Urine Neg (NEGATIVE)
[2024-05-27] MEDS ORDERED: ePHEDrine SULFATE 50 MG/ML AMP IV ONE (23:30)
[2024-05-27] MEDS: LACTATED RINGER'S 1,000 ML IV ONE (23:30)
[2024-05-27] MEDS: PENICILLIN G POT 5MIL/D5 50ML 50 ML IV ONE (23:37)
[2024-05-28] MEDS: ROPIVACAINE HCL 200 ML ONE (00:15)
[2024-05-28] MEDS: POTASSIUM CHL 20 Meq TABLET PO ONE ×2 (00:34→15:26)
[2024-05-28] MEDS ORDERED: METHYLERGONOVINE MALEATE 0.2 MG/ML AMP IM PRN (01:45)
[2024-05-28] MEDS ORDERED: miSOPROStol 100 mcg TAB SL PRN (01:45)
[2024-05-28] MEDS ORDERED: miSOPROStol 100 mcg TAB PR PRN (01:45)
[2024-05-28] MEDS ORDERED: CARBOPROST TROMETHAMINE 250 MCG/1ML VIAL IM PRN (01:45)
[2024-05-28] MEDS ORDERED: DIPHENOXYLATE W/ATROPINE 2.5 MG TAB PO PRN (01:45)
[2024-05-28] MEDS ORDERED: ONDANSETRON HCL 4 MG/2 ML VIAL ONE (01:48)
[2024-05-28] MEDS: ONDANSETRON HCL 4 MG/2 ML VIAL IV PRN (02:07)
[2024-05-28] MEDS: PENICILLIN G POTASSIUM 2,500,000 UNITS in D5W 5% 50 ML IV SCH (03:49)
[2024-05-28] MEDS: LACT. RINGERS/OXYTOCIN 20UNITS 1,000 ML IV SCH (07:29)
[2024-05-28] MEDS: LACT. RINGERS/OXYTOCIN 20UNITS 500 ML IV ONE ×2 (11:26→11:27)
[2024-05-28] MEDS ORDERED: IBUPROFEN 600 MG TAB PO PRN (11:30)
[2024-05-28 13:46] LABS: Alanine Aminotransferase 12 U/L (7-40); Albumin 3.3 g/dL (3.2-4.8); Alkaline Phosphatase 110 U/L (46-116); Anion Gap 8 (5-15); Aspartate Aminotransferase 19 U/L (13-40); BUN/Creatinine Ratio 7.7 (10.0-20.0); Bilirubin, Total 0.4 mg/dL (0.2-1.0); Blood Urea Nitrogen 5 mg/dL (9-23); Calcium 8.8 mg/dL (8.7-10.4); Carbon Dioxide 25 mmol/L (20-31); Chloride 107 mmol/L (98-107); Glucose 115 mg/dL (74-106); Potassium 3.1 mmol/L (3.5-5.1); Sodium 140 mmol/L (136-145); Total Protein 5.2 g/dL (5.7-8.2)
[2024-05-28 15:00] VITALS: BP 126/77; PULSE 82; RESP 18; TEMP 98.3; O2SAT 100
[2024-05-28 19:00] VITALS: BP 133/65; PULSE 92; RESP 18; TEMP 97.6; O2SAT 95
[2024-05-28] MEDS ORDERED: FER325T PO (21:30)
[2024-05-28] MEDS ORDERED: IBU600T PO (21:30)
[2024-05-28] MEDS ORDERED: ASCO500T11 PO ×2 (21:30→21:41)
[2024-05-28] MEDS ORDERED: DOCU-265 PO (21:30)
[2024-05-28] MEDS ORDERED: PREN-96 PO (21:30)
[2024-05-28 21:44] LABS: Basophils # (auto) 0 10 ^3/uL (0-0.2); Eosinophils # (auto) 0.1 10 ^3/uL (0-0.8); Eosinophils % (auto) 0.7 % (0.0-7.0); Hematocrit 30.2 % (36.0-46.0); Lymphocytes % (auto) 14.1 % (10.0-50.0); Mean Corpuscular Hemoglobin 29.2 pg (28.0-32.0); Mean Corpuscular Hgb Conc. 33.2 g/dL (32.0-36.0); Mean Corpuscular Volume 88.1 fL (80.0-100.0); Monocytes # (auto) 0.9 10 ^3/uL (0-1.3); Monocytes % (auto) 6.5 % (0.0-12.0); Neutrophils # (auto) 11.4 10 ^3/uL (1.6-8.6); Neutrophils % (auto) 78.7 % (37.0-80.0); Platelet Count (auto) 173 10^3/uL (140-450); Red Blood Cells 3.42 10^6/uL (4.0-5.20); Red Cell Distribution Width 13.8 % (11.8-14.3); White Blood Cell 14.5 10^3/uL (4.4-10.8)
[2024-05-28 21:56] LABS: Alanine Aminotransferase 12 U/L (7-40); Alkaline Phosphatase 102 U/L (46-116); Anion Gap 7 (5-15); Aspartate Aminotransferase 18 U/L (13-40); Carbon Dioxide 26 mmol/L (20-31); Chloride 109 mmol/L (98-107); Glucose 100 mg/dL (74-106); Potassium 3.6 mmol/L (3.5-5.1); Sodium 142 mmol/L (136-145)
[2024-05-28 21:57] LABS: Albumin 3.4 g/dL (3.2-4.8); Bilirubin, Total 0.4 mg/dL (0.2-1.0); Total Protein 5.3 g/dL (5.7-8.2)
[2024-05-28 22:02] LABS: BUN/Creatinine Ratio 8.3 (10.0-20.0); Blood Urea Nitrogen < 5 mg/dL (9-23)
[2024-05-28] MEDS: DOCUSATE SOD 100 MG CAP PO SCH (22:21)
[2024-05-28] MEDS: ACETAMINOPHEN 325 MG TAB PO PRN (22:22)
[2024-05-28 23:30] VITALS: BP 138/82; PULSE 76; RESP 18; TEMP 98.7; O2SAT 98
[2024-05-29 03:00] VITALS: BP 134/83; PULSE 78; RESP 18; TEMP 98; O2SAT 98
[2024-05-29 06:06] LABS: RPR Non Reactive (Non Reactive)
[2024-05-29 07:00] VITALS: BP 133/83; PULSE 71; RESP 18; TEMP 98; O2SAT 97
[2024-05-29 11:00] VITALS: BP 137/84; PULSE 90; RESP 20; TEMP 98.3; O2SAT 98
== END 2024-05-29 12:20 | disposition home or self-care (01) | DRG 807 ==
LOC: LDRP 20:27
PROVIDERS: ADMIT Obstetrics & Gynecology; ATTEND Obstetrics & Gynecology
PROC: 10E0XZZ Delivery of Products of Conception, External Approach (ICD-10-PCS; principal; 2024-05-28)
PROC: 3E0R3BZ Introduction of Anesthetic Agent into Spinal Canal, Percutaneous Approach (ICD-10-PCS; 2024-05-28)
PROC: 00HU33Z Insertion of Infusion Device into Spinal Canal, Percutaneous Approach (ICD-10-PCS; 2024-05-28)
DX: O99.824 Streptococcus B carrier state complicating childbirth (principal); Z37.0 Single live birth; O69.81X0 Labor and delivery complicated by cord around neck, without compression, not applicable or unspecified; Z3A.39 39 weeks gestation of pregnancy; O90.81 Anemia of the puerperium
CPT/HCPCS: 36415; 59200; 59409; 62282; 80053; 80307; 81001; 85025; 85610; 85730; 86592; 86780; 86803; 86850; 86900; 86901; 94760; 96360; 96361; 96365; 96366; 96374; G0378; J2405; J2540; J2590; J7060